=== PATIENT | female | born 1975 | race Caucasian/White ===

== ENCOUNTER 2022-11-02 15:56 | Outpatient (CLI) | payer BC ==
--- NOTE | 2022-11-03 11:37 | Ultrasound Report ---
PROCEDURE: Pelvic w/Transvaginal INDICATIONS: Heavy irregular menses. TECHNIQUE: Real-time scanning was performed of the pelvic organs, with image documentation. Additional endovagi nal scanning was necessary due to incomplete visualization of the adnexal and endometrial structures by transabdominal scanning. COMPARISON: None. FINDINGS: Uterus: Uterus is anteverted and normal in size at 9.6 x 4.0 x 5.3 cm. The myometrium is homogeneou s. A left anterior subserosal fibroid is present measuring 2.0 x 1.4 x 1.6 cm. The endometrium measur es 12 mm in combined thickness. No focal lesion identified. Ovaries: The right ovary measures 3.4 x 3.0 x 3.8 cm, with a calculated ovarian volume of 20 cc. A 3.5 cm simple cyst is present. The left ovary measures 2.4 x 1.3 x 2.9 cm, with a calculated ovarian volume of 5 cc. Less than 12 follicles can be seen in each ovary. No adnexal masses are seen. Other: No pathologic free abdominal or pelvic fluid. IMPRESSION: 1. A 2.0 cm subserosal uterine fibroid is present. 2. No focal endometrial lesion identified sonographically. 3. A 3.5 cm simple cyst is present in the right ovary. Per SRU guidelines, imaging follow-up is not n ecessary for this finding in an asymptomatic patient. Reviewed by: Kodi Tavarez MD on 11/03/2022 11:36 AM PDT Approved by: Kodi Tavarez MD on 11/03/2022 11:36 AM PDT Station ID: [id number]
== END 2022-11-02 15:57 | disposition home or self-care (01) ==
LOC: DI 15:56
PROVIDERS: ATTEND Internal Medicine
DX: D25.2 Subserosal leiomyoma of uterus (principal); N83.291 Other ovarian cyst, right side

== ENCOUNTER 2022-12-31 07:43 | Day surgery (SDC) | payer BC ==
[~2022-12-31 07:43] MED LIST: BUPIVACAINE 0.5%-EPI 1:200000 PF 30 ML VIAL ONE
[2022-12-31 07:58] LABS: HCG UR QUAL NEGATIVE
[2022-12-31] MEDS ORDERED: LACTATED RINGERS 1,000 ML IV ONE ×2 (08:15→09:18)
[2022-12-31 08:23] LABS: BASOPHILS # (AUTO) 0.1 10^3/uL (0.0-0.1); BASOPHILS % (AUTO) 0.7 %; EOSINOPHILS # (AUTO) 0.1 10^3/uL (0.0-0.7); EOSINOPHILS % (AUTO) 1.7 %; HCT - HEMATOCRIT 35.5 % (37.0-47.0); LYMPHOCYTES # (AUTO) 1.9 10^3/uL (1.5-3.5); LYMPHOCYTES % (AUTO) 27.5 %; MEAN CORPUSCULAR HEMOGLOBIN 21.7 pg (27.0-31.0); MEAN CORPUSCULAR HGB CONC 28.2 g/dL (32.0-36.0); MEAN PLATELET VOLUME 8.1 fL (7.9-10.8); MONOCYTES # (AUTO) 0.4 10^3/uL (0.0-1.0); MONOCYTES % (AUTO) 6.2 %; NEUTROPHILS # (AUTO) 4.4 10^3/uL (1.5-6.6); NEUTROPHILS % (AUTO) 63.5 %; PLT - PLATELET COUNT 616 10^3/uL (130-450); RED BLOOD COUNT 4.61 10^6/uL (4.20-5.40); RED CELL DISTRIBUTION WIDTH 18.5 % (12.0-15.0)
--- NOTE | 2022-12-31 08:23 | ANESTHESIA ---
Pre-Anesthesia VS, & Labs - Diagnosis abnormal uterine bleeding, labial cyst - Procedure myosure hysteroscopy, excision of labial cyst - NPO >8 hours - Is Patient ?: No Home Medications and Allergies Home Medications: Ambulatory Orders valACYclovir [Valtrex] 500 mg PO DAILY 12/27/22 valACYclovir [Valtrex] 500 mg PO DAILY 12/27/22 Allergies/Adverse Reactions: Allergies Allergy/AdvReac Type Severity Reaction Status Date / Time No Known Drug Allergies Allergy Verified 12/27/22 13:03 Anes History & Medical History - Anesthetic History Anesthesia Complications: reports: No previous complications Family history of Anesthesia Complications: Denies Family history of Malignant Hyperthermia: Denies - Medical History Cardiovascular: reports: None Pulmonary: reports: None, Other (currently coughing, pt claims it's "allergies". also smokes 3 cigars/day) Gastrointestinal: reports: None Urinary: reports: None Musculoskeletal: reports: None Endocrine/Autoimmune: reports: None Skin: reports: None - Surgical History Gynecologic: reports: section Exam General: Alert, Oriented x3, Cooperative Dental: WNL, Other (prominent incisors) Mouth Openin Fingerbreadth Neck Mobility: Normal Mallampati classification: II Thyromental Distance: 4-6 cm Respiratory: Rhonchi Cardiovascular: Regular rate Plan Anesthesia Type: General Consent for Procedure(s) Verified and Reviewed: Yes Code Status: Attempt Resuscitation ASA classification: 2-Mild systemic disease Is this case an emergency?: No
[2022-12-31] MEDS ORDERED: METOCLOPRAMIDE 10 MG/2 ML VIAL IVP PRN (08:24)
[2022-12-31] MEDS ORDERED: HYDROmorphone 0.5 MG/0.5 ML SYRINGE IVP PRN (08:24)
[2022-12-31] MEDS ORDERED: ePHEDrine 50 MG/ML VIAL IVP PRN (08:24)
[2022-12-31] MEDS ORDERED: fentaNYL 100 MCG/2 ML VIAL IVP PRN (08:24)
[2022-12-31] MEDS ORDERED: ONDANSETRON 4 MG/2 ML VIAL IVP PRN (08:24)
[2022-12-31] MEDS ORDERED: ATROPINE ABBOJECT 1 MG/10 ML SYRINGE IVP PRN (08:24)
[2022-12-31] MEDS ORDERED: NALOXONE 0.4 MG/ML VIAL IVP PRN (08:24)
[2022-12-31] MEDS ORDERED: MORPHINE 2 MG/ML CARPUJECT IVP PRN (08:24)
[2022-12-31 08:25] LABS: SLIDE REVIEW? Indicated
[2022-12-31] MEDS ORDERED: fentaNYL 100 MCG/2 ML VIAL ONE (08:31)
[2022-12-31] MEDS ORDERED: MIDAZOLAM 2 MG/2 ML VIAL ONE (08:31)
[2022-12-31] MEDS ORDERED: LIDOCAINE-PF 2% 10 ML AMP SUBQ ONE (08:32)
[2022-12-31] MEDS ORDERED: PROPOFOL 200 MG/20 ML VIAL IVP ONE (08:32)
[2022-12-31 08:46] LABS: RBC MORPHOLOGY (MULTIPLE) 2+ HYPOCHROMASIA (NORMAL)
[2022-12-31] MEDS ORDERED: BUPIVACAINE 0.5%-EPI 1:200000 PF 30 ML VIAL SUBQ ONE (09:00)
[2022-12-31] MEDS ORDERED: LACTATED RINGERS 1,000 ML IV SCH (09:00)
--- NOTE | 2022-12-31 09:16 | OPERATIVE REPORT ---
Operative Report - General Procedure Date: 12/31/22 Planned Procedure: Hysteroscopy, dilation and curettage, left labial cystectomy Pre-Op Diagnosis: Abnormal uterine bleeding, left labial cyst Procedure Performed: Hysteroscopy, dilation and curettage, left labial cystectomy Post Op Diagnosis: Abnormal uterine bleeding, left labial cyst - Procedure Note Primary Surgeon: Veto Zayas MD Anesthesia Provider: Fernanda Barajas CRNA Anesthesia Technique: General ET tube Pathology: Endometrial curettings Left labial cyst IV Fluids (mL): 450 Estimated Blood Loss (mL): 5 Urine Output (mL): 0 (Not measured) Complications: None - Other Other Information/Narrative: Patient was taken to the procedure room and placed in dorsal lithotomy position. Hibiclens was used to clean the operative area. Nickerson speculum was palced in the vagina and the cervix was visualized. The anterior lip the cervix was grasped with a single-tooth tenaculum. 0.5% Marcaine with epinephrine was used for a cervical block. The cervix was non-stenotic and allowed the easy passage of dilators. Hysteroscope was then used to hydrodilate using normal saline distention media. Hysteroscope was advanced without difficulty using hydrodistention. Cervical canal was noted to have no unusual lesions. Upon entry into the internal cervical os there was noted to be proliferative endometrium within the uterus. Bilateral tubal ostia were noted. Hysteroscope was then removed. Sharp curetting was then performed getting sampling of all areas of the uterus. Tenaculum was then removed from the cervix noted to be hemostatic. All instruments removed from the vagina Fluid deficit 70 mL. Attention was then turned to her left labial cyst. This was injected with a small amount of local anesthesia and a 15 blade scalpel was used to make a small incision in the skin. The cyst wall was grasped with toothed pickups and bluntly dissected until removal of the cyst was completed. Area was hemostatic at the end of the procedure. Sponge and sharps counts were correct and patient was taken to PACU in good condition.
[2022-12-31 10:18] VITALS: BP 126/78
--- NOTE | 2022-12-31 15:40 | ANESTHESIA POST OP EVALUATION ---
Anesthesia Post Eval - Post Anesthesia Eval Vitals: Last Vital Signs Temp 36.0 C L 12/31/22 10:10 Pulse 77 12/31/22 10:10 Resp 16 12/31/22 10:10 BP 126/78 12/31/22 10:10 Pulse Ox 91 L 12/31/22 10:10 O2 Flow Rate CV Function Including HR & BP: Stable Pain Control: Satisfactory Nausea & Vomiting: Negative Mental Status: Baseline Respiratory Status: Airway Patent Hydration Status: Satisfactory Anesthesia Complications: None
== END 2022-12-31 07:44 | disposition home or self-care (01) ==
LOC: SDS 07:43
PROVIDERS: ATTEND Obstetrics & Gynecology
PROC: 0UDB8ZZ Extraction of Endometrium, Via Natural or Artificial Opening Endoscopic (ICD-10-PCS; principal; 2022-12-31 07:30)
PROC: 0UBMXZZ Excision of Vulva, External Approach (ICD-10-PCS; 2022-12-31 07:30)
DX: N93.9 Abnormal uterine and vaginal bleeding, unspecified (principal); N90.7 Vulvar cyst; D25.2 Subserosal leiomyoma of uterus; I10 Essential (primary) hypertension; F17.290 Nicotine dependence, other tobacco product, uncomplicated
CPT/HCPCS: 11421; 58558; 81025; 85025; J7120

== ENCOUNTER 2023-04-23 12:03 | Day surgery (SDC) | payer BC ==
[2023-04-23] MEDS ORDERED: PROPOFOL 500 MG/50 ML 500 MG/50 ML VIAL ONE (12:11)
[2023-04-23] MEDS ORDERED: LACTATED RINGERS 1,000 ML IV ONE (12:33)
--- NOTE | 2023-04-23 12:40 | ANESTHESIA ---
Pre-Anesthesia VS, & Labs - Diagnosis dysphagia + screening - Procedure EGD + colonoscopy Vital Signs: Temp Pulse Resp BP Pulse Ox O2 Flow Rate 36.4 C L 82 16 129/86 H 95 04/23/23 12:15 04/23/23 12:15 04/23/23 12:15 04/23/23 12:15 04/23/23 12:15 Height: 5 ft 5 in Weight (kg): 80.7 kg Body Mass Index: 29.6 BMI Classification: Overweight - NPO >8 hours - Is Patient ?: No - Lab Results Lab results reviewed: Yes Home Medications and Allergies valACYclovir [Valtrex] 500 mg PO DAILY 12/27/22 Allergies/Adverse Reactions: Allergies Allergy/AdvReac Type Severity Reaction Status Date / Time No Known Drug Allergies Allergy Verified 12/27/22 13:03 Anes History & Medical History - Anesthetic History Anesthesia Complications: reports: No previous complications Family history of Anesthesia Complications: Denies Family history of Malignant Hyperthermia: Denies - Medical History Cardiovascular: reports: None Pulmonary: reports: None Gastrointestinal: reports: None Urinary: reports: None Neuro: reports: None Musculoskeletal: reports: None Endocrine/Autoimmune: reports: None Skin: reports: None Smoking Status: Current every day smoker Psychosocial: reports: Alcohol - Surgical History Gynecologic: reports: section, Tubal ligation Exam General: Alert, Oriented x3, Cooperative Dental: WNL Mouth Openin Fingerbreadth Neck Mobility: Normal Mallampati classification: II Thyromental Distance: 4-6 cm Respiratory: Lungs clear Cardiovascular: Regular rate Plan Anesthesia Type: General, MAC Regional Block: Per Surgeon's request for Post Op pain control Consent for Procedure(s) Verified and Reviewed: Yes Code Status: Attempt Resuscitation ASA classification: 2-Mild systemic disease Is this case an emergency?: No
[2023-04-23] MEDS ORDERED: LIDOCAINE-PF 2% 10 ML AMP SUBQ ONE (12:53)
[2023-04-23] MEDS ORDERED: PROPOFOL 500 MG/50 ML 1,000 MG/100 ML VIAL ONE (13:39)
[2023-04-23] MEDS ORDERED: LACTATED RINGERS 300 ML IV ONE (13:50)
[2023-04-23 14:21] VITALS: BP 121/109; O2SAT 96
== END 2023-04-23 12:04 | disposition home or self-care (01) ==
LOC: SDS 12:03
PROVIDERS: ATTEND Surgery
PROC: 0DBN8ZX Excision of Sigmoid Colon, Via Natural or Artificial Opening Endoscopic, Diagnostic (ICD-10-PCS; 2023-04-23)
PROC: 0DB48ZX Excision of Esophagogastric Junction, Via Natural or Artificial Opening Endoscopic, Diagnostic (ICD-10-PCS; principal; 2023-04-23 13:15)
PROC: 0DB68ZX Excision of Stomach, Via Natural or Artificial Opening Endoscopic, Diagnostic (ICD-10-PCS; 2023-04-23 13:15)
DX: Z12.11 Encounter for screening for malignant neoplasm of colon (principal); K63.5 Polyp of colon; K22.2 Esophageal obstruction; K22.89 Other specified disease of esophagus; I10 Essential (primary) hypertension; F17.290 Nicotine dependence, other tobacco product, uncomplicated
CPT/HCPCS: 43239; 43249; 45380; J7120

== ENCOUNTER 2023-11-02 12:07 | Outpatient (CLI) | payer BC | END 2023-11-02 23:59 | disposition critical access hospital (66) | LOC: EMS 12:07 | DX: R07.89 Other chest pain (principal); R42 Dizziness and giddiness; R06.2 Wheezing | CPT/HCPCS: A0425; A0427 ==

== ENCOUNTER 2023-11-02 12:29 | Emergency (ER) | payer BC ==
--- NOTE | 2023-11-02 12:49 | ED Physician Documentation ---
History of Present Illness - Stated complaint Stated Complaint: CHEST PAIN - Chief complaint Chief Complaint: Cardiac - History obtained from History obtained from: Patient, EMS - History of Present Illness Timing: Today Pain level max: 8 Pain level now: 0 - Additonal information Additional information: Patient is a 48-year-old female who presents to the emergency department complaining of chest pain in the center of her chest today. She states that it felt sharp. Started approximately 9 AM. She states that she took one of her mother's nitroglycerin tablets without relief. Worse with eating and drinking. Nothing seems to make it better. No change with breathing, movement. She states she does not have any cardiac history other than she had "an abnormal EKG" and was placed on a quality assurance monitor chassis for 3 days. She states that that was normal. That was in 2012. Contrary to the triage note, she did not have an [place]. Patient has no cardiac stents, bypasses or other cardiac history. She smokes cigars daily. She has never used inhalers. She states she has wheezing daily. She states that the pain today felt like "heartburn". Nonradiating. Did not go to the back, abdomen or neck. No numbness or tingling. No paresthesias. No nausea or vomiting. Went to the walk-in clinic and was sent here for further evaluation. Currently patient does not have pain. Review of Systems Constitutional: denies: Fever, Chills Nose: denies: Rhinorrhea / runny nose, Congestion Throat: denies: Sore throat Cardiac: denies: Palpitations, Calf pain Respiratory: reports: Wheezing. 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 - Present Medications Home Medications: Ambulatory Orders Medication Instructions Recorded Confirmed valACYclovir [Valtrex] 500 mg PO DAILY 12/27/22 04/23/23 Albuterol Sulf [Ventolin Hfa 1 - 2 puffs INH Q4HR PRN #1 each 11/02/23 Inhaler] - Allergies Allergies/Adverse Reactions: Allergies Allergy/AdvReac Type Severity Reaction Status Date / Time No Known Drug Allergies Allergy Verified 11/02/23 12:35 - Social History Does the pt smoke?: Yes Smoking Status: Current every day smoker Does the pt drink ETOH?: Yes - Immunizations Immunizations are current?: Yes - POLST Patient has POLST: No PD ED PE NORMAL - Vitals Vital signs reviewed: Yes - General General: Alert and oriented X 3, No acute distress - HEENT HEENT: Moist mucous membranes - Neck Neck: Supple, no meningeal sign - Cardiac Cardiac: RRR, Strong equal pulses - Respiratory Respiratory: No respiratory distress, Other (Diffuse wheezing bilaterally) - Abdomen Abdomen: Soft, Non tender, Non distended - Back Back: No CVA TTP, No spinal TTP - Derm Derm: Warm and dry - Extremities Extremities: No edema, No calf tenderness / cord - Neuro Neuro: Alert and oriented X 3 - Psych Psych: Normal mood, Normal affect Results - Vitals Vitals: Vital Signs - 24 hr 11/02/23 11/02/23 11/02/23 12:35 12:56 13:08 Temperature 36.8 C Heart Rate 83 72 Respiratory 16 16 Rate Blood Pressure 125/81 H 132/92 H Blood Pressure 125/81 H [Left] O2 Saturation 92 98 11/02/23 11/02/23 11/02/23 13:42 13:55 14:00 Temperature Heart Rate 71 69 84 Respiratory 15 14 14 Rate Blood Pressure 137/87 H 136/77 H Blood Pressure [Left] O2 Saturation 94 98 11/02/23 11/02/23 11/02/23 14:21 14:56 15:00 Temperature Heart Rate 73 77 Respiratory 14 14 Rate Blood Pressure 136/77 H 130/70 Blood Pressure [Left] O2 Saturation 94 88 L 91 L Oxygen O2 Source Room air - EKG (time done) 1245 EKG releavant findings:: EKG personally interpreted by author of this note. Relevant findings are: Rate: Rate (enter#) (80) Rhythm: NSR [place]: Normal Intervals: Normal [place] QRS: Normal Ischemia: Normal ST segments - Labs Labs: Laboratory Tests 11/02/23 11/02/23 11/02/23 12:47 12:47 14:29 WBC 8.6 RBC 4.95 Hgb 10.9 L Hct 38.7 MCV 78.2 L MCH 22.0 L MCHC 28.2 L RDW 20.9 H Plt Count 489 H MPV 7.8 L Neut # (Auto) 5.9 Lymph # (Auto) 1.9 [place] # (Auto) 0.6 Eos # (Auto) 0.1 Baso # (Auto) 0.0 Absolute Nucleated RBC 0.00 Nucleated RBC % 0.0 Sodium 135 Potassium 4.3 Chloride 102 Carbon Dioxide 28 Anion Gap 5.0 L BUN 7 Creatinine 0.6 Estimated GFR (MDRD) 106 Glucose 94 Calcium 10.1 Total Bilirubin 0.4 AST 19 ALT 14 Alkaline Phosphatase 63 Troponin I High Sens 17.4 H* 16.9 H* Total Protein 6.8 Albumin 3.9 Globulin 2.9 Albumin/Globulin Ratio 1.3 Lipase 28 - Rads (name of study) cxr Relevant Findings:: Final report received, See rad report PD Medical Decision Making - ED course Complexity details: reviewed results, re-evaluated patient, considered differential (No ST elevation AZ, no aortic dissection, no PE, no tension pneumothorax, no aortic aneurysm), d/w patient ED course: Patient with atypical chest pain today. Feels better upon arrival to the emergency department. Her wheezing and breathing are easier after albuterol treatment. Will prescribe an inhaler for home. No acute findings on EKG other than minimal ST depression. High-sensitivity troponin is minimally elevated on the first draw. A second draw was performed. The second high-sensitivity troponin does not show any elevation from the first. Patient continues to be pain-free in the emergency department. She does become mildly hypoxic when she falls asleep, resolves immediately upon waking. She states that she had is a sleep study ordered. Will prescribe a inhaler for home. Recommend she follow- up with her doctor for long-acting inhalers and further pulmonary care. Also recommend that she stop smoking cigars daily. Recommend that she have an outpatient cardiac stress test with her doctor. No evidence of PE. Patient counseled regarding signs and symptoms for which I believe and urgent re- evaluation would be necessary. Patient with good understanding of and agreement to plan and is comfortable going home at this time This document was made in part using voice recognition software. While efforts are made to proofread this document, sound alike and grammatical errors may occur. Departure - Departure Disposition: Home, Self Care Clinical Impression: Chest pain Qualifiers: Chest pain type: unspecified Qualified Code(s): R07.9 - Chest pain, unspecified Condition: Good Instructions: ED Chest Pain Atypical Unkn Cause Follow-Up: Antoine Spring MD [Primary Care Provider] - Within 1 week Prescriptions: Albuterol Sulf [Ventolin Hfa Inhaler] 1 - 2 puffs INH Q4HR PRN #1 each PRN Reason: Shortness Of Air/Wheezing Comments: Your EKG, chest x-ray and laboratory testing did not show any significant abnormalities today. Please follow-up with your doctor for further care. Please return if you worsen. We will prescribe you an inhaler for home. Your doctor should schedule you for a cardiac stress test. Your prescription was sent to [facility] in [place]. Forms: PCP List Discharge Date/Time: 11/02/23 15:23
[2023-11-02 12:53] LABS: BASOPHILS % (AUTO) 0.5 %; EOSINOPHILS # (AUTO) 0.1 10^3/uL (0.0-0.7); EOSINOPHILS % (AUTO) 1.3 %; HCT - HEMATOCRIT 38.7 % (37.0-47.0); HGB - HEMOGLOBIN 10.9 g/dL (12.0-16.0); LYMPHOCYTES # (AUTO) 1.9 10^3/uL (1.5-3.5); LYMPHOCYTES % (AUTO) 22.3 %; MEAN CORPUSCULAR HGB CONC 28.2 g/dL (32.0-36.0); MEAN CORPUSCULAR VOLUME 78.2 fL (81.0-99.0); MEAN PLATELET VOLUME 7.8 fL (7.9-10.8); MONOCYTES # (AUTO) 0.6 10^3/uL (0.0-1.0); MONOCYTES % (AUTO) 7.1 %; NEUTROPHILS # (AUTO) 5.9 10^3/uL (1.5-6.6); NEUTROPHILS % (AUTO) 68.6 %; PLT - PLATELET COUNT 489 10^3/uL (130-450); RED BLOOD COUNT 4.95 10^6/uL (4.20-5.40); RED CELL DISTRIBUTION WIDTH 20.9 % (12.0-15.0); WHITE BLOOD COUNT 8.6 x10^3/uL (4.8-10.8)
[2023-11-02 13:13] LABS: ALBUMIN 3.9 g/dL (3.2-5.5); ALBUMIN/GLOBULIN RATIO 1.3 (1.0-2.2); BILIRUBIN,TOTAL 0.4 mg/dL (0.2-1.0); CALCIUM 10.1 mg/dL (8.5-10.3); CREATININE 0.6 mg/dL (0.6-1.3); POTASSIUM 4.3 mmol/L (3.5-4.5); TOTAL PROTEIN 6.8 g/dL (6.4-8.9)
[2023-11-02 13:38] LABS: TROPONIN I HIGH SENSITIVITY 17.4 ng/L (2.3-14.8)
[2023-11-02] MEDS: IPRATROPIUM/ALBUTEROL 3 ML NEB INH STA (13:41)
[2023-11-02 15:11] VITALS: BP 130/70; O2SAT 91
--- NOTE | 2023-11-02 16:16 | XRAY Report ---
PROCEDURE: Chest 1V INDICATIONS: Chest pain TECHNIQUE: One view of the chest was acquired. COMPARISON: None. FINDINGS: Surgical changes and devices: None. Lungs and pleura: No pleural effusions or pneumothorax. Lungs are clear. Mediastinum: Mediastinal contours appear normal. Heart size is normal. Bones and chest wall: No suspicious bony lesions. Overlying soft tissues appear unremarkable. IMPRESSION: No acute cardiopulmonary process. Reviewed by: Antoine Merrill MD on 11/02/2023 12:05 PM [place] Approved by: Antoine Merrill MD on 11/02/2023 12:05 PM [place] Station ID: [id number]
== END 2023-11-02 15:23 | disposition home or self-care (01) ==
LOC: EDUNIT# → SUPCPDRO 12:29 → ED 12:29
DX: R07.9 Chest pain, unspecified (principal); F17.290 Nicotine dependence, other tobacco product, uncomplicated
CPT/HCPCS: 36415; 80053; 83690; 84484; 85025; 93005; 94640; 99284

== ENCOUNTER 2024-04-09 14:57 | Outpatient (CLI) | payer BC ==
[2024-04-09] MEDS: ALBUTEROL 1 PUFF INH STA (15:00)
== END 2024-04-09 14:58 | disposition home or self-care (01) ==
LOC: RT 14:57
PROVIDERS: ATTEND Internal Medicine
DX: F17.290 Nicotine dependence, other tobacco product, uncomplicated (principal)
CPT/HCPCS: 94060; 94729